=== PATIENT | female | born 1965 | race African-American/Black ===

== ENCOUNTER 2016-08-25 14:24 | Emergency (ER) | payer BC | END 2016-08-25 15:15 | disposition home or self-care (01) | LOC: CED 14:24 → CFTX 14:24 | DX: T23.071A Burn of unspecified degree of right wrist, initial encounter (principal); T31.0 Burns involving less than 10% of body surface; I10 Essential (primary) hypertension; K21.9 Gastro-esophageal reflux disease without esophagitis; Z88.0 Allergy status to penicillin; Z88.8 Allergy status to other drugs, medicaments and biological substances; X19.XXXA Contact with other heat and hot substances, initial encounter; Y92.009 Unspecified place in unspecified non-institutional (private) residence as the place of occurrence of the external cause | CPT/HCPCS: 99283 ==